=== PATIENT | female | born 1980 | race Asian ===

== ENCOUNTER 2024-05-06 10:41 | Outpatient (CLI) | payer OTHER, SELFPAY | END 2024-05-06 10:42 | disposition home or self-care (01) | LOC: NFLDREF 05-07 18:55 | PROVIDERS: PCP Emergency Medicine; Referring Provider Emergency Medicine; Visit Provider Emergency Medicine | DX: I10 Essential (primary) hypertension (principal); M27.9 Disease of jaws, unspecified | CPT/HCPCS: 80048; 82306 ==